=== PATIENT | female | born 1980 | race African-American/Black ===

== ENCOUNTER → 2020-06-01 | Outpatient (CLI) | payer OTHER | LOC: LAB 16:36 → EH 16:36 | PROVIDERS: ATTEND Student in an Organized Health Care Education/Training Program | DX: Z20.828 Contact with and (suspected) exposure to other viral communicable diseases (principal) ==

== ENCOUNTER → 2021-03-30 | Outpatient (CLI) | payer BC | LOC: LAB 16:03 | PROVIDERS: ATTEND Student in an Organized Health Care Education/Training Program | DX: Z20.822 Contact with and (suspected) exposure to COVID-19 (principal) ==

== ENCOUNTER → 2021-06-26 | Outpatient (CLI) | payer BC | LOC: LAB 09:34 | PROVIDERS: ATTEND Student in an Organized Health Care Education/Training Program | DX: U07.1 COVID-19 (principal) ==